=== PATIENT | female | born 1980 | race Two or more races ===

== ENCOUNTER 2024-03-20 21:29 | Inpatient (IN) | payer MEDICAID ==
[~2024-03-20] VITALS: Ht 157.5 cm; Wt 50.6 kg
[2024-03-20] MEDS ORDERED: TOP25T PO (21:51)
[2024-03-20] MEDS: normal saline 1000ml 1,000 ML IV ONE (22:49)
[2024-03-20] MEDS: metoclopramide 5 mg/ml inj IV ONE (22:50)
[2024-03-20] MEDS: ketorolac trometh 30MG/ML vial 30 MG/ML VIAL IV ONE (22:52)
[2024-03-20] MEDS: diphenhydrAMINE 50 mg/ml inj IV ONE (22:53)
[2024-03-20] MEDS: HYDROcodone/acetaminophen 5mg/325mg tablet PO ONE (22:55)
[2024-03-20 23:07] LABS: BASOPHILS % (AUTO) 0.6 % (0-1); EOSINOPHILS # (AUTO) 0.4 X10'3 (0-0.9); EOSINOPHILS % (AUTO) 7.4 % (0-6); HEMATOCRIT 32.6 % (35.0-45.0); HEMOGLOBIN 11.3 g/dl (12.0-16.0); LYMPHOCYTES # (AUTO) 2.2 X10'3 (1.1-4.8); LYMPHOCYTES % (AUTO) 38.4 % (21-51); MEAN CORPUSCULAR HEMOGLOBIN 34.6 PG (27.0-31.0); MEAN CORPUSCULAR HGB CONC 34.6 g/dL (33.0-36.5); MEAN CORPUSCULAR VOLUME 100.1 FL (78-98); MEAN PLATELET VOLUME 8.6 FL (7.4-10.4); MONOCYTES # (AUTO) 0.4 X10'3 (0-0.9); MONOCYTES % (AUTO) 6.4 % (2-12); NEUTROPHILS # (AUTO) 2.7 X10'3 (1.8-7.7); NEUTROPHILS % (AUTO) 47.2 % (42-75); PLATELET COUNT 147 X10'3 (140-440); RED BLOOD COUNT 3.25 X10'6 (4.20-5.60); RED CELL DISTRIBUTION WIDTH 12.5 % (11.5-14.5); WHITE BLOOD COUNT 5.7 X10'3 (4.5-11.0)
[2024-03-20 23:20] LABS: ALANINE AMINOTRANSFERASE 21 U/L (12-78); ALBUMIN 2.9 G/DL (3.4-5.0); ALKALINE PHOSPHATASE 51 IU/L (46-116); ANION GAP 6 (8-16); ASPARTATE AMINO TRANSFERASE 13 U/L (10-37); BILIRUBIN,TOTAL 0.2 MG/DL (0.1-1.0); BLOOD UREA NITROGEN 18 MG/DL (7-18); BUN/CREATININE RATIO 25.7 (10.0-20.0); CALCIUM 8.1 MG/DL (8.5-10.1); CHLORIDE 110 MMOL/L (99-107); GLUCOSE 108 MG/DL (70-104); LIPASE 25 U/L (16-77); POTASSIUM 3.9 MMOL/L (3.5-5.1); SODIUM 140 MMOL/L (135-145); TOTAL CARBON DIOXIDE 23.9 MMOL/L (24-32); TOTAL PROTEIN 5.7 G/DL (6.4-8.2); eCRCL 84 ML/MIN; eGFR > 90 ML/MIN
[2024-03-21 00:05] LABS: HCG SERUM QL NEGATIVE
[2024-03-21] MEDS: normal saline 1000ml 1,000 ML IV ONE ×3 (00:27→17:57)
[2024-03-21] MEDS ORDERED: magnesium sulf-water 2g/50mL 50 ML IV PRN (04:20)
[2024-03-21] MEDS ORDERED: magnesium Cl slow-release 64mg tablet PO PRN (04:20)
[2024-03-21] MEDS ORDERED: magnesium sulf-water 4G/100mL 100 ML IV PRN (04:20)
[2024-03-21] MEDS ORDERED: morphine 2 MG/ML inj. syringe IV PRN (04:20)
[2024-03-21] MEDS ORDERED: mag hydrox/Alum hydrox/simeth 30ml oral suspension PO PRN (04:20)
[2024-03-21] MEDS ORDERED: potassium Cl 40MEQ/1/2NS 520ml 520 ML IV PRN (04:20)
[2024-03-21] MEDS ORDERED: magnesium hydroxide 30ml (MOM) UD suspension PO PRN (04:20)
[2024-03-21] MEDS ORDERED: potassium Cl 20 mEq SR tablet PO PRN ×2 (04:20)
[2024-03-21] MEDS: normal saline 1000ml 1,000 ML IV SCH ×2 (04:36→16:26)
[2024-03-21 06:19] LABS: BILIRUBIN,URINE NEGATIVE (Neg); CLARITY,URINE CLEAR (Clear); COLOR,URINE YELLOW (Yellow); GLUCOSE, URINE NEGATIVE (Neg); KETONES,URINE NEGATIVE (Neg); LEUKOCYTE ESTERASE ,URINE NEGATIVE (Neg); NITRITES, URINE NEGATIVE (Neg); OCCULT BLOOD,URINE NEGATIVE (Neg); PROTEIN,URINE NEGATIVE (Neg); UROBILINOGEN,URINE 0.2 E.U/dL (0.2-1.0)
[2024-03-21 06:23] LABS: UA COLLECTION TYPE CLN CATCH MIDSTREAM
[2024-03-21 06:46] LABS: URINE AMPHETAMINE SCREEN NEGATIVE (Neg); URINE BARBITUATE SCREEN NEGATIVE (Neg); URINE BENZODIAZEPINES SCREEN NEGATIVE (Neg); URINE CANNABINOID SCREEN NEGATIVE (Neg); URINE COCAINE SCREEN NEGATIVE (Neg); URINE METHADONE SCREEN NEGATIVE (Neg); URINE OPIATE SCREEN POSITIVE (Neg); URINE PHENCYCLIDINE SCREEN NEGATIVE (Neg)
[2024-03-21] MEDS: morphine 2 MG/ML inj. syringe IV PRN (07:42)
[2024-03-21] MEDS: ondansetron/PF 4mg/2ml inj IV PRN (07:42)
[2024-03-21] MEDS: K and/or MAG REPLACEMENT MC SCH (08:00)
[2024-03-21] MEDS: folic acid 1mg tablet PO SCH (08:22)
[2024-03-21] MEDS: docusate sod 100mg capsule PO SCH (08:22)
[2024-03-21] MEDS: enoxaparin 40mg/0.4ml syringe SUBCUT SCH (08:22)
[2024-03-21] MEDS: tamsulosin 0.4mg capsule PO SCH (08:25)
[2024-03-21 08:53] LABS: MAGNESIUM 2.2 MG/DL (1.5-2.4); POTASSIUM 4.1 MMOL/L (3.5-5.1)
[2024-03-21 09:24] LABS: BASOPHILS % (AUTO) 0.5 % (0-1); EOSINOPHILS # (AUTO) 0.3 X10'3 (0-0.9); EOSINOPHILS % (AUTO) 4.8 % (0-6); HEMATOCRIT 35.4 % (35.0-45.0); LYMPHOCYTES # (AUTO) 1.7 X10'3 (1.1-4.8); MEAN CORPUSCULAR HEMOGLOBIN 34.5 PG (27.0-31.0); MEAN CORPUSCULAR HGB CONC 33.8 g/dL (33.0-36.5); MEAN CORPUSCULAR VOLUME 102.2 FL (78-98); MONOCYTES # (AUTO) 0.3 X10'3 (0-0.9); MONOCYTES % (AUTO) 4.8 % (2-12); NEUTROPHILS % (AUTO) 62.9 % (42-75); PLATELET COUNT 135 X10'3 (140-440); RED BLOOD COUNT 3.47 X10'6 (4.20-5.60); WHITE BLOOD COUNT 6.4 X10'3 (4.5-11.0)
[2024-03-21 09:33] LABS: ALANINE AMINOTRANSFERASE 31 U/L (12-78); ALBUMIN 2.7 G/DL (3.4-5.0); ALBUMIN/GLOBULIN RATIO 0.9 (1.1-1.5); ALKALINE PHOSPHATASE 50 IU/L (46-116); ANION GAP 7 (8-16); ASPARTATE AMINO TRANSFERASE 35 U/L (10-37); BILIRUBIN,TOTAL 0.4 MG/DL (0.1-1.0); BLOOD UREA NITROGEN 16 MG/DL (7-18); BUN/CREATININE RATIO 25.4 (10.0-20.0); CALCIUM 7.7 MG/DL (8.5-10.1); CHLORIDE 112 MMOL/L (99-107); CREATININE 0.63 MG/DL (0.40-0.90); GLUCOSE 102 MG/DL (70-104); POTASSIUM 3.9 MMOL/L (3.5-5.1); SODIUM 139 MMOL/L (135-145); TOTAL CARBON DIOXIDE 19.7 MMOL/L (24-32); TOTAL PROTEIN 5.8 G/DL (6.4-8.2); eCRCL 93 ML/MIN; eGFR > 90 ML/MIN
[2024-03-21 16:15] VITALS: BP 122/77; PULSE 58; RESP 18; TEMP 97.7; O2SAT 100
[2024-03-21] MEDS: metroNIDAZOLE-Flagyl 500mg/NS 100 ML IV SCH (16:26)
[2024-03-21] MEDS: ketorolac trometh 15mg/ml vial 15 MG/ML ML IV PRN (16:27)
[2024-03-21 17:00] VITALS: RESP 16
[2024-03-21 19:00] VITALS: BP 120/77; PULSE 71; RESP 16; TEMP 97.9; O2SAT 99
[2024-03-21] MEDS ORDERED: tamsulosin 0.4mg capsule PO SCH (21:00)
[2024-03-21] MEDS: CefTRIAXone/D5W-Rocephin 1gm 50 ML IV ONE (21:44)
[2024-03-21 22:00] VITALS: BP_SYST 120; BP_SYST 125; BP_DIAS 77; BP_DIAS 82; PULSE 68; PULSE 84; RESP 16; RESP 17; TEMP 98.3; TEMP 98.5; O2SAT 98; O2SAT 99
[2024-03-21] MEDS: HYDROcodone/acetaminophen 5mg/325mg tablet PO PRN (22:10)
[2024-03-22] MEDS: fluticasone nasal spray 16GM bottle NS SCH (02:30)
[2024-03-22 06:00] VITALS: BP 107/64; PULSE 74; RESP 15; TEMP 98.7; O2SAT 99
[2024-03-22 06:42] LABS: BASOPHILS % (AUTO) 0.5 % (0-1); EOSINOPHILS # (AUTO) 0.2 X10'3 (0-0.9); EOSINOPHILS % (AUTO) 4.4 % (0-6); HEMATOCRIT 33.4 % (35.0-45.0); HEMOGLOBIN 11.2 g/dl (12.0-16.0); LYMPHOCYTES # (AUTO) 1.1 X10'3 (1.1-4.8); MEAN CORPUSCULAR HEMOGLOBIN 33.9 PG (27.0-31.0); MEAN CORPUSCULAR HGB CONC 33.6 g/dL (33.0-36.5); MEAN CORPUSCULAR VOLUME 100.9 FL (78-98); MEAN PLATELET VOLUME 8.7 FL (7.4-10.4); MONOCYTES # (AUTO) 0.3 X10'3 (0-0.9); NEUTROPHILS # (AUTO) 3.6 X10'3 (1.8-7.7); NEUTROPHILS % (AUTO) 69.1 % (42-75); PLATELET COUNT 130 X10'3 (140-440); RED BLOOD COUNT 3.31 X10'6 (4.20-5.60); RED CELL DISTRIBUTION WIDTH 12.9 % (11.5-14.5); WHITE BLOOD COUNT 5.3 X10'3 (4.5-11.0)
[2024-03-22 06:58] LABS: ALBUMIN 2.7 G/DL (3.4-5.0); ANION GAP 8 (8-16); BLOOD UREA NITROGEN 9 MG/DL (7-18); CALCIUM 7.4 MG/DL (8.5-10.1); CHLORIDE 114 MMOL/L (99-107); GLUCOSE 88 MG/DL (70-104); POTASSIUM 4.1 MMOL/L (3.5-5.1); SODIUM 141 MMOL/L (135-145); TOTAL CARBON DIOXIDE 19.2 MMOL/L (24-32); eCRCL 98 ML/MIN; eGFR > 90 ML/MIN
[2024-03-22 08:50] VITALS: RESP 16
[2024-03-22] MEDS: CefTRIAXone/D5W-Rocephin 1gm 50 ML IV SCH (09:07)
[2024-03-22 10:00] VITALS: BP 101/60; PULSE 77; RESP 14; TEMP 98.2; O2SAT 99
[2024-03-22 13:25] VITALS: RESP 18
[2024-03-22] MEDS: acetaminophen 325mg tablet PO PRN (17:25)
== END 2024-03-22 17:56 | disposition left against medical advice (07) | DRG 465 ==
LOC: ER 21:30 → ED HOLD 03-21 03:46 → ORTHO 4S 03-21 15:50
PROVIDERS: ADMIT Internal Medicine Critical Care Medicine; ATTEND Family Medicine
DX: N20.0 Calculus of kidney (principal); E83.51 Hypocalcemia; D50.9 Iron deficiency anemia, unspecified; F17.290 Nicotine dependence, other tobacco product, uncomplicated; G43.909 Migraine, unspecified, not intractable, without status migrainosus; K52.9 Noninfective gastroenteritis and colitis, unspecified; G89.29 Other chronic pain; R19.00 Intra-abdominal and pelvic swelling, mass and lump, unspecified site; Z53.29 Procedure and treatment not carried out because of patient's decision for other reasons; I73.00 Raynaud's syndrome without gangrene; M54.9 Dorsalgia, unspecified; Z88.5 Allergy status to narcotic agent; Z88.6 Allergy status to analgesic agent; Z88.8 Allergy status to other drugs, medicaments and biological substances; Z90.710 Acquired absence of both cervix and uterus; Z90.49 Acquired absence of other specified parts of digestive tract; Z83.3 Family history of diabetes mellitus; Z82.49 Family history of ischemic heart disease and other diseases of the circulatory system; Z80.6 Family history of leukemia; Z56.0 Unemployment, unspecified
CPT/HCPCS: 36415; 76856; 80048; 80053; 80305; 81003; 83605; 83690; 83735; 84132; 84145; 84703; 85025; 93976; 99285; G0378; J0696; J1200; J1650; J1885; J2270; J2405; J2765; J3490; J7030